=== PATIENT | female | born 2000 ===

== ENCOUNTER → 2025-08-02 | Outpatient (REF) | payer OTHER ==
[2025-08-02 19:00] LABS: URINE PREG TEST NEGATIVE (NEGATIVE)
[2025-08-02 20:14] LABS: Trichomonas vaginalis (AMP) NOT DETECTED (NEGATIVE)
[2025-08-02 20:38] LABS: GC DNA AMPLIFICATION NEGATIVE (NEGATIVE)
== END ==
LOC: M LAB REF 18:10
DX: Z20.2 Contact with and (suspected) exposure to infections with a predominantly sexual mode of transmission (principal)